=== PATIENT | female | born 1940 | race Caucasian/White ===

== ENCOUNTER → 2018-12-23 | Outpatient (CLI) | payer MEDICARE ==
[~2018-12-23] MED LIST: ASPI-496 PO; FLUT1DIS IH; LEVO75TA5 PO; PROP10TA16 PO; ROSU40TA PO; centrum silver PO; fish oil PO; zyrtec PO
== END | disposition home or self-care (01) ==
LOC: STAR 12:02
PROVIDERS: ATTEND Internal Medicine Geriatric Medicine
DX: Z01.818 Encounter for other preprocedural examination (principal); K22.5 Diverticulum of esophagus, acquired; I10 Essential (primary) hypertension
CPT/HCPCS: 71046; 93005

== ENCOUNTER 2018-12-30 06:25 | Day surgery (SDC) | payer MEDICARE ==
[~2018-12-30] VITALS: Ht 170.2 cm; Wt 69.4 kg
[2018-12-30 06:49] VITALS: BP 137/88
[2018-12-30] MEDS ORDERED: LACTATED RINGERS 1,000 ML IV SCH (06:51)
[2018-12-30] MEDS ORDERED: LIDOCAINE-MPF 1%, 2ML INFIL ONE (07:00)
[2018-12-30] MEDS ORDERED: FENTANYL PF 100 MCG/2ML ONE (08:55)
[2018-12-30] MEDS ORDERED: CEFAZOLIN 1,000 MG ONE (09:56)
[2018-12-30] MEDS ORDERED: ONDANSETRON 2MG/ML, 2ML ONE (09:56)
[2018-12-30] MEDS ORDERED: PROPOFOL 10 MG/ML, 20ML ONE (09:56)
[2018-12-30] MEDS ORDERED: DEXAMETHASONE 4 MG/ML, 1ML ONE (09:56)
[2019-01-09] MEDS ORDERED: PROP10TA51 PO (11:52)
== END 2018-12-30 11:53 | disposition home or self-care (01) ==
LOC: OUT 06:25
PROVIDERS: ATTEND Internal Medicine Geriatric Medicine
DX: K22.5 Diverticulum of esophagus, acquired (principal); E03.9 Hypothyroidism, unspecified; N18.1 Chronic kidney disease, stage 1; J84.9 Interstitial pulmonary disease, unspecified; J42 Unspecified chronic bronchitis; Z91.048 Other nonmedicinal substance allergy status
CPT/HCPCS: 43180; J1100; J2405; J2704; J3010; J7120; J0690